=== PATIENT | male | born 2000 | race African-American/Black ===

== ENCOUNTER 2020-12-23 13:24 | Emergency (ER) | payer OTHER, MEDICAID ==
[~2020-12-23] VITALS: Ht 175.3 cm; Wt 83.0 kg
[2020-12-23] MEDS ORDERED: MORPHINE SULFATE 4 MG/ML CPJ (NOT FOR IM USE) IV ONE (13:45)
[2020-12-23] MEDS ORDERED: IOHEXOL-350 100 ML BOTTLE ONE (15:56)
[2020-12-23 16:50] VITALS: BP 128/70
== END 2020-12-23 17:03 | disposition home or self-care (01) ==
LOC: ER 13:38
DX: S51.842A Puncture wound with foreign body of left forearm, initial encounter (principal); X95.9XXA Assault by unspecified firearm discharge, initial encounter; R03.0 Elevated blood-pressure reading, without diagnosis of hypertension; Y93.9 Activity, unspecified; Y92.9 Unspecified place or not applicable
CPT/HCPCS: 73090; 73206; 93005; 96374; 99285; J2270; Q9967